=== PATIENT | male | born 1970 | race Two or more races ===

== ENCOUNTER → 2017-07-03 | Outpatient (REF) | payer OTHER | LOC: M SMT 13:04 | PROVIDERS: ATTEND Nurse Practitioner Women's Health | DX: N13.30 Unspecified hydronephrosis (principal); R31.29 Other microscopic hematuria ==

== ENCOUNTER → 2020-07-05 | Outpatient (REF) | payer OTHER ==
[2020-07-05 18:18] LABS: APPEARANCE, URINE CLEAR (CLEAR); BACTERIA, URINE AUTO NEGATIVE (NEGATIVE); BILIRUBIN, URINE AUTO NEGATIVE (NEGATIVE); BLOOD, URINE BLOOD NEGATIVE (NEGATIVE); COLOR, URINE YELLOW (YELLOW); GLUCOSE, URINE (UA) AUTO NEGATIVE (NEGATIVE); KETONE, URINE AUTO NEGATIVE (NEGATIVE); LEUKOCYTE ESTERASE, URINE AUTO NEGATIVE (NEGATIVE); MUCUS, URINE SMALL (NEGATIVE); NITRITE, URINE AUTO NEGATIVE (NEGATIVE); PROTEIN, URINE AUTO NEGATIVE (NEGATIVE); RBC, URINE AUTO 0 /HPF (0-3); SQUAMOUS EPITHELIAL CELL UR AU 0 /HPF (0-6); UROBILINOGEN, URINE AUTO 0.2 mg/dL (0.0-2.0); WBC, URINE AUTO 0 /HPF (0-3)
== END ==
LOC: M SMT 16:56
PROVIDERS: ATTEND Nurse Practitioner Women's Health
DX: N50.819 Testicular pain, unspecified (principal)
CPT/HCPCS: 81001; 87086; G0463

== ENCOUNTER → 2020-07-13 | Outpatient (CLI) | payer OTHER ==
--- NOTE | 2020-07-18 14:24 | REP ---
SCROTAL SONOGRAPHY: HISTORY: Testicular pain. FINDINGS: High resolution bilateral scrotal sonography shows no evidence of intratesticular mass on either side. Doppler flow is present to both testes with resistive indices normal, measured at 0.66 on the right and 0.59 on the left. The right testis measures 4.9 x 2.1 x 2.9 cm. Left testicular dimensions are 4.0 x 2.1 x 2.5 cm. Testicular parenchyma is slightly heterogeneous bilaterally. No hydrocele or hernia is appreciated. No evidence of varicocele. There are small cysts in the epididymi bilaterally, including a 5 mm cyst on the left and a 4 and a 5 mm cyst on the right. There is a tiny 3 mm cyst in the hilar region of the right testis. IMPRESSION: No evidence of intratesticular mass. Doppler flow is intact. Somewhat heterogeneous testicular parenchyma, question orchitis. Small epididymal cysts. Otherwise negative. MTDD
== END ==
LOC: M RAD 07:52
PROVIDERS: ATTEND Nurse Practitioner Women's Health
DX: N50.89 Other specified disorders of the male genital organs (principal)

== ENCOUNTER → 2022-05-08 | Outpatient (CLI) | payer OTHER ==
[~2022-05-08] MED LIST: ISOVUE-370 76% 100ML VIAL As Ordered ONE
== END ==
LOC: M RAD 17:09
DX: R91.8 Other nonspecific abnormal finding of lung field (principal); K76.0 Fatty (change of) liver, not elsewhere classified
CPT/HCPCS: 71275; Q9967

== ENCOUNTER → 2023-11-14 | Outpatient (REF) | payer OTHER ==
[2023-11-14 18:10] LABS: APPEARANCE, URINE CLEAR (CLEAR); BACTERIA, URINE AUTO NEGATIVE (NEGATIVE); BILIRUBIN, URINE AUTO NEGATIVE (NEGATIVE); BLOOD, URINE BLOOD NEGATIVE (NEGATIVE); COLOR, URINE YELLOW (YELLOW); GLUCOSE, URINE (UA) AUTO NEGATIVE (NEGATIVE); KETONE, URINE AUTO NEGATIVE (NEGATIVE); LEUKOCYTE ESTERASE, URINE AUTO NEGATIVE (NEGATIVE); MUCUS, URINE SMALL (NEGATIVE); NITRITE, URINE AUTO NEGATIVE (NEGATIVE); PROTEIN, URINE AUTO NEGATIVE (NEGATIVE); RBC, URINE AUTO 0 /HPF (0-3); SPECIFIC GRAVITY URINE AUTO 1.016 (1.002-1.035); SQUAMOUS EPITHELIAL CELL UR AU 0 /HPF (0-6); UROBILINOGEN, URINE AUTO 0.2 mg/dL (0.0-2.0); WBC, URINE AUTO 1 /HPF (0-3)
== END ==
LOC: M SMT 17:13
PROVIDERS: ATTEND Nurse Practitioner Family
DX: N50.819 Testicular pain, unspecified (principal)

== ENCOUNTER → 2023-11-27 | Outpatient (CLI) | payer OTHER | LOC: M RAD 10:52 | PROVIDERS: ATTEND Nurse Practitioner Family | DX: N50.819 Testicular pain, unspecified (principal); N50.3 Cyst of epididymis ==

== ENCOUNTER 2024-01-01 07:42 | Day surgery (SDC) | payer OTHER ==
[~2024-01-01] VITALS: Ht 185.4 cm; Wt 111.9 kg
[~2024-01-01 07:42] MED LIST changes: +ATOR80TA59 PO; +CYCL5TAB PO; -ISOVUE-370 76% 100ML VIAL As Ordered ONE; +LIDOCAINE 2% 100MG/5ML SDV (FOR ANES.) As Ordered ONE; +OMEP40CA4 PO; +VITA100093 PO; +fentaNYL 100 MCG/2 ML INJECTION As Ordered ONE; +propofoL 500 MG/50 ML VIAL As Ordered ONE
[2024-01-01] MEDS: NS 1,000 ML IV ONE (08:26)
[2024-01-01] MEDS ORDERED: dexmedeTOMIDine (4MCG/ML)200MCG/50ML BTL (PRECEDEX) As Ordered ONE (09:16)
[2024-01-01 10:05] VITALS: TEMP 96.5
[2024-01-01 10:58] VITALS: BP 117/60; O2SAT 97
== END 2024-01-01 11:15 | disposition home or self-care (01) ==
LOC: M OPP 07:42
PROVIDERS: ATTEND Internal Medicine Gastroenterology
DX: Z12.11 Encounter for screening for malignant neoplasm of colon (principal); Z86.010 Personal history of colon polyps; K64.0 First degree hemorrhoids; K57.30 Diverticulosis of large intestine without perforation or abscess without bleeding; K22.89 Other specified disease of esophagus; K44.9 Diaphragmatic hernia without obstruction or gangrene; R12 Heartburn; G47.30 Sleep apnea, unspecified; Z99.89 Dependence on other enabling machines and devices; Z79.02 Long term (current) use of antithrombotics/antiplatelets; Z79.891 Long term (current) use of opiate analgesic; Z79.899 Other long term (current) drug therapy
CPT/HCPCS: 43239; 45378; 88305; J3010